=== PATIENT | male | born 1935 | race Caucasian/White ===

== ENCOUNTER 2021-03-09 13:49 | Inpatient (IN) | payer OTHER ==
[~2021-03-09] VITALS: Ht 182.9 cm; Wt 99.1 kg
[2021-03-09] MEDS ORDERED: XARELTO20 MG PO (15:31)
[2021-03-09] MEDS ORDERED: FUROSEMIDE 20 M20 MG PO (15:33)
[2021-03-09] MEDS ORDERED: LEVO-T100 MCG PO (15:35)
[2021-03-09] MEDS ORDERED: K-TAB ER20 MEQ PO (15:36)
[2021-03-09] MEDS ORDERED: LIPITOR40 MG PO (15:37)
[2021-03-09] MEDS ORDERED: PREDNISONE 10 M10 MG PO (15:38)
[2021-03-09] MEDS ORDERED: LOPRESSOR50 MG PO (15:38)
[2021-03-09] MEDS ORDERED: ARNUITY ELLIP100 MCG INH (15:40)
--- NOTE | 2021-03-09 18:23 | NUR ---
PATIENT ADMIT TO UNIT FROM [facility]. A/O X4. HARD HEARING. SR ON MONIOTR. ON 10L/NC, DENIES PAIN. WILL KEEP MONITOR.
[2021-03-09 19:25] VITALS: BP 97/50
[2021-03-09 23:53] VITALS: BP 96/56
[2021-03-10 02:42] VITALS: BP 122/64
[2021-03-10 05:09] LABS: INR 1.14; PROTIME 12.4 Seconds (10.5-12.1)
[2021-03-10 05:24] LABS: HEMATOCRIT 36.1 % (42.0-52.0); HEMOGLOBIN 12.3 gm/dL (14.0-18.0); MCH 35.2 pg (26.0-34.0); MCV 103.4 fL (80.0-100.0); RBC 3.5 mil/uL (4.50-6.00); RDW 14.1 % (10.5-14.5)
[2021-03-10 05:30] LABS: ALBUMIN 1.5 g/dL (3.4-5.0); CALCIUM 7.8 mg/dL (8.5-10.1); CREATININE 1.2 mg/dL (0.7-1.3); DIRECT BILIRUBIN 0.2 mg/dL (<0.1-0.2); PHOSPHORUS 4.2 mg/dL (2.5-4.9); POTASSIUM 3.8 mmol/L (3.5-5.1); TOTAL BILIRUBIN 0.5 mg/dL (0.2-1.0); TOTAL PROTEIN 5.5 g/dL (6.4-8.2)
--- NOTE | 2021-03-10 05:49 | NUR ---
PT MAKING SLOW PROGRESS TOWARDS GOALS. PLACED ON HIS HOME CPAP MACHINE WITH 7L O2 BLED IN. SLEPT OVER NIGHT. DENIED ANY COMPLAINTS THIS MORNING EXCEPT FOR DRY SCRATCHY THROAT. LUNG CTA UPPER LOBES, CRACKLES OVER BOTH LOWER LOBES.
[2021-03-10 07:17] VITALS: BP 104/58
--- NOTE | 2021-03-10 09:11 | NUR ---
WOUND CONSULT; THE PATIENT HAS SEVERAL AREAS TO THE LEFT BUTTOCKS W/ S/S CONSISTANT WITH FRICTION SHEARING. THE SACRUM REGION HAS AN AREA OF REDNESS THAT IS SLOW TO VINNIE AND CONSISTANT WITH A STAGE 1. THE PATIENT IS WEAK AND CANNOT TURN HIMSELF. NO S/S OF INFECTION. RECCOMENDATIONS; -LOW AIRLOSS PUMP WITH TURNING MORE FREQUANT THAN Q2H. -BARRIER CREAM BID -EMPLOY WEDGES AND PILLOWS. -MOISTURE/INCONTINENCE MANAGEMENT.
[2021-03-10 11:20] VITALS: BP 98/52
--- NOTE | 2021-03-10 11:45 | NUR ---
INITIAL ASSESSMENT: TIA reviewed chart and spoke with nursing and attending physician. Pt was transferred to [facility] from [facility] due to respiratory failure. Pt placed in Enhanced Isolation. Pt had a positive COVID test yesterday at [facility]. Pt is afebrile and currently on 9L of O2. Pt is on IV steroids/IV abx and Remdesivir. TIA placed call to pt's room. Pt unable to hear via phone. TIA spoke with pt's , Agnieszka, via phone. Introduced role of TIA. Pt's is a retired nurse. Pt is normally alert/orientated x 4 and lives at home with his in [place]. Pt with hx COPD/HTN. Pt has been at [facility] this month and was discharged home on 03/03 on home O2. Pt was on 4L of O2. Home O2 in place through [facility]. Pt has a home bipap machine through [facility]. Pt's states that pt has used a bipap machine for the past 18 years. Pt has not needed home O2 until just recent hospitalization. Pt is fully vaccinated and has had the booster shot for COVID. Pt's family is also fully vaccinated. Pt's family all tested negative yesterday. Pt is currently on service with [facility]. Pt's PCP is Dr. Wild Armenta in [place]. Pt sees Dr. Adryan Rose for pulmonary and Dr. Jones for cardiology in [place]. Pt's states pt gained 10 pounds from last Monday to Monday due to edema. SW discussed eventual discharge plan. No hx of post-acute placement. Pt's states that pt will need post-acute placement upon discharge for continued rehab services. Pt needs to get stronger prior to returning home. SW discussed options. Pt's requests referral to the swing bed unit at [place] due to location. SW also discussed pt's insurance. Pt's states pt has Medicare and C is secondary. TIA updated UR and Director of Case Mgmt, as [facility] is the only insurance listed. TIA left voice message for the dean of admissions at [facility]. TIA provided contact info for pt's to attending physician. Requested a call to pt's . Therapy evals have been ordered. TIA is following to assist as needed with discharge planning.
--- NOTE | 2021-03-10 13:21 | NUR ---
PATIENT IS ALERT AND ORIENTED X4. HE IS HARD OF HEARING. PATIENT IS CC/ TELE AND HAS BEEN AFIB IN THE 50'S THIS SHIFT. PATIENT IS ON 9L OF OXYGEN VIA HIGH FLOW NASAL CANULA AT THIS TIME. PATIENT HAS A SMALL BM THIS SHIFT. PATIENT IS CONTINENT OF URINE. PATIENT HAS A SCHULER CATHETER IN PLACE IT IS PATIENT. PATIENT HAS AN IV IN HIS RIGHT FOREARM AND IT IS PATENT. PATIENT WILL CONTINUE TO BE MONITORED.
[2021-03-10 15:33] VITALS: BP 106/56
[2021-03-10 19:46] VITALS: BP 108/65
--- NOTE | 2021-03-10 20:47 | HC ---
[facility] [place] [address] CONSULTATION Name: ÁNGEL ROYAL Room #: 350-P ADM IN M.R.#: [id number] Admission: 03/09/21 Attend Phys: Gamaliel Chang MD Discharge: Date of : 33 Report #: [id number] THIS REPORT FOR: cc: FAM - Family physician unknown FAM - Family physician unknown Jens Montgomery MD ~ DATE OF SERVICE: 03/09/2021 INFECTIOUS DISEASE CONSULTATION REASON FOR CONSULTATION: I was asked to evaluate concerning COVID-19 pneumonia. 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 Diagnosed with pneumonia and discharged. Subsequently, had further respiratory complaints and was rehospitalized and transferred to [facility] for further care. He has been previously vaccinated for COVID-19. Screened positive. Lives at home with his who is also, he reports, having issues with COVID-19. He is a retired dental mechanic. No HIV risk factors. No previous pneumonia reported other than his pulmonary toxicity. No tuberculosis exposure. No HIV risk factors. Has had intermittent headache. No anosmia. No nausea, vomiting or diarrhea. REVIEW OF SYSTEMS: A 14-point review of system was negative other than what has been described above. PAST MEDICAL HISTORY: COPD; pulmonary toxicity, amiodarone; atrial fibrillation, chronic anticoagulation, hypothyroidism, colon cancer, partial colon resection 20 years ago, right shoulder surgery. ALLERGIES: AMIODARONE. MEDICATIONS: As noted on his MAR, which were reviewed, noting Xarelto, Lasix, levothyroxine, atorvastatin, potassium, metoprolol, 10 mg of prednisone a day, fluticasone inhaler. FAMILY HISTORY: Heart disease, cancer. SOCIAL HISTORY: Nonsmoker, no significant alcohol intake. PHYSICAL EXAMINATION: GENERAL: He is afebrile and hemodynamically stable. On 8 liters of oxygen per nasal cannula. He was alert and cooperative. He was hard of hearing. SKIN: Without rash. No palpable adenopathy. HEENT: Eyes without scleral icterus. Mouth without mucositis. NECK: Supple. [facility] [address] [place] [address] CONSULTATION Name: ÁNGEL ROYAL Room #: 350-[facility] IN M.R.#: [id number] Admission: 03/09/21 Attend Phys: Gamaliel Chang MD Discharge: Date of : 34 Report #: [id number] LUNGS: Coarse breath sounds heard posteriorly. No consolidation. HEART: Regular, without murmur, gallop or rub. ABDOMEN: Soft and nontender. No hepatosplenomegaly or mass. GENITORECTAL: Examination not performed. EXTREMITIES: Without clubbing, cyanosis or edema. SPINE: Nontender. NEUROLOGIC: Cranial nerves with decreased hearing, right more than left. Strength in the upper and lower extremities was symmetric and within normal limits. PSYCHIATRIC: Mood without anxiety. IMPRESSION: An 85-year-old with: 1. COVID-19 pneumonia and respiratory failure. 2. Underlying chronic obstructive pulmonary disease and atrial fibrillation, on anticoagulation. 3. Amiodarone pulmonary toxicity, oxygen requiring. 4. Hypothyroidism, on replacement. RECOMMENDATION: Continue anti-inflammatory and antiviral therapy. Continue antibiotics pending culture results. Check serial laboratory studies and x-ray. Monitor on COVID isolation unit for cardiopulmonary care. <ELECTRONICALLY SIGNED> By: Jens Montgomery MD 03/10/21 2047 [id number] Jens Montgomery MD /nt
[2021-03-11 04:20] VITALS: BP 104/59
[2021-03-11 05:54] LABS: ABSOLUTE NEUTROPHILS 7.6 thou/uL (1.4-8.2); BASOPHILS 0.2 % (0.0-2.0); HEMOGLOBIN 12.2 gm/dL (14.0-18.0); LYMPHOCYTES 9.5 % (24.0-44.0); MCH 33.7 pg (26.0-34.0); MCHC 32.9 g/dL (28.0-37.0); MCV 102.5 fL (80.0-100.0); MONOCYTES 4.8 % (1.0-8.0); PLATELET COUNT 197 thou/uL (150-400); POLYS 85.5 % (36.0-66.0); RBC 3.61 mil/uL (4.50-6.00); RDW 14.1 % (10.5-14.5); WBC 8.9 thou/uL (4.0-11.0)
[2021-03-11 06:26] LABS: ALBUMIN 1.5 g/dL (3.4-5.0); CALCIUM 7.7 mg/dL (8.5-10.1); CREATININE 0.9 mg/dL (0.7-1.3); DIRECT BILIRUBIN 0.2 mg/dL (<0.1-0.2); PHOSPHORUS 3.3 mg/dL (2.6-4.7); POTASSIUM 3.5 mmol/L (3.5-5.1); TOTAL BILIRUBIN 0.5 mg/dL (0.2-1.0); TOTAL PROTEIN 5.5 g/dL (6.4-8.2)
--- NOTE | 2021-03-11 06:39 | NUR ---
PT MAKING SLOW PROGRESS TOWARDS GOALS. PT STATES THAT HE FEELS HE IS BREATHING BETTER THAN WHEN HE CAME HERE. O2 AT 7L PER NC AND WITH CPAP OVERNIGHT. CONTINUES TO HAVE FAINT CRACKLES IN BOTH BASES.
[2021-03-11 07:16] VITALS: BP 113/60
[2021-03-11 11:11] VITALS: BP 106/55
--- NOTE | 2021-03-11 11:27 | NUR ---
TIA reviewed chart and spoke with nursing and attending physician. Pt remains in Enhanced Isolation due to COVID. Pt is afebrile and on 8L of O2. Pt required 15L with physical therapy earlier today. Pt is on IV meds and Remdesivir. No discharge planned over the holiday weekend. TIA spoke with Sarah at [facility]. Provided clinical info. Per June, the should be able to accept pt next week. Sarah requests additional info/updates to be faxed on Monday for review. TIA spoke with pt's via phone to provide update and discuss discharge plan. Pt's is agreeable with plan and states that if [facility] is unable to accept, she would be agreeable with the swing bed unit at [facility]. Pt's spoke with attending physician this morning and is thankful for the info. Pt's code status has been changed to DNR. TIA is following to assist as needed with discharge planning.
--- NOTE | 2021-03-11 18:17 | NUR ---
Patient is alert and oriented x4. He is on enhanced precations. Patient is currently on 15L of oxygen via nasal canula. Patient is cc/ tele and has been sinus tonya this shift. Patient has a singh catheter in place that is patent. Patients last BM was this shift 2020. Patient has been q2 hours and cream has been applied to patietns sacral area as ordered. Patient has an IV in his right hand. IV is patient. Patient will continue to be monitored.
[2021-03-11 19:24] VITALS: BP 113/60
[2021-03-11 22:06] LABS: HIV ANTIBODY Non Reactive (Non Reactive)
[2021-03-12 02:52] LABS: ABSOLUTE NEUTROPHILS 9.2 thou/uL (1.4-8.2); BASOPHILS 0.1 % (0.0-2.0); HEMATOCRIT 36.3 % (42.0-52.0); HEMOGLOBIN 12.1 gm/dL (14.0-18.0); LYMPHOCYTES 7.8 % (24.0-44.0); MCH 34.2 pg (26.0-34.0); MCHC 33.4 g/dL (28.0-37.0); MCV 102.6 fL (80.0-100.0); MONOCYTES 3.8 % (1.0-8.0); PLATELET COUNT 181 thou/uL (150-400); POLYS 88.3 % (36.0-66.0); RBC 3.54 mil/uL (4.50-6.00); RDW 14.2 % (10.5-14.5); WBC 10.4 thou/uL (4.0-11.0)
--- NOTE | 2021-03-12 03:48 | NUR ---
ASSUMED PT CARE AT 1900. PT ALERT & ORIENTED X 4. CURRENTLY ON 15L O2 VIA CPAP. O2 SATS 94-99%. VSS AFEBRILE. NO C/O OF PAIN, NAUSEA/VOMITTING. PT IS SB ON TELE MONITOR. SCHULER TO DD. IV ABX ADMINISTERED. PT IS MAKING A SLOW PROGRESSION TOWARDS POC GOALS. CONTINUE WITH PLAN OF CARE.
[2021-03-12 04:09] VITALS: BP 109/61
[2021-03-12 04:24] LABS: ALBUMIN 1.4 g/dL (3.4-5.0); CALCIUM 7.7 mg/dL (8.5-10.1); DIRECT BILIRUBIN 0.2 mg/dL (<0.1-0.2); PHOSPHORUS 2.9 mg/dL (2.5-4.9); POTASSIUM 3.5 mmol/L (3.5-5.1); TOTAL BILIRUBIN 0.5 mg/dL (0.2-1.0); TOTAL PROTEIN 5.5 g/dL (6.4-8.2)
[2021-03-12 07:26] VITALS: BP 115/65
[2021-03-12 10:51] LABS: BE(vivo) 2.9 mmol/L (-2 to +3); HCO3 26.5 mmol/L (22.0-26.0); PCO2 37.2 mmHg (35.0-45.0); PO2 59.8 mmHg (80.0-100.0); sO2 92.5 % (92.0-98.0)
[2021-03-12 11:24] VITALS: BP 111/63
[2021-03-12 16:42] VITALS: BP 108/60
[2021-03-12 18:19] VITALS: BP 111/63
--- NOTE | 2021-03-12 18:40 | NUR ---
PATIENT IS ALERT AND ORIENTED X4 THIS SHIFT. HE IS HARD OF HEARING. HE IS CC/ TELE AND HAS BEEN RUNNING SINUS DARIEN THIS SHIFT. PATIENT WAS PLACED ON A HIGH FLOW NASAL CANULA 50/50. HE HAS TOLERATED THIS TREATMENT WELL. PATIENTS LAST BM WAS 12- . PATIENT HAS A SCHULER CATHETER THAT IS PATENT, PATIENT HAS AN IV IN HIS RIGHT HAND. PATIENT IS UP X1 ASSIST AND IS CURRENTLY IN HIS RECLINER. PATIENT HAS SKIN BREAK DOWN ON HIS SACRAL AREA AND HAS BEEN REPOSITIONED Q2 HOURS ORDERED. OINTMENT IS APPLIED TO AREA WITH SKIN BREAK DOWN. PATIENT CONTINUES TO BE ON ENHANCED PRECAUTIONS. PATIENT HAD A VIDEO VISIT WITH HIS FAMILY THIS EVENING AT IT HAS HAD A POSITIVE IMPACT ON PATIENTS MOOD. PATIENT WILL CONTINUE TO BE MONITORED.
[2021-03-12 20:25] VITALS: BP 106/44
[2021-03-13 05:40] LABS: ABSOLUTE NEUTROPHILS 8.3 thou/uL (1.4-8.2); BASOPHILS 0.1 % (0.0-2.0); HEMATOCRIT 37.2 % (42.0-52.0); HEMOGLOBIN 12.5 gm/dL (14.0-18.0); LYMPHOCYTES 8.5 % (24.0-44.0); MCH 34.3 pg (26.0-34.0); MCHC 33.6 g/dL (28.0-37.0); MCV 102.2 fL (80.0-100.0); MONOCYTES 3.4 % (1.0-8.0); PLATELET COUNT 163 thou/uL (150-400); RBC 3.64 mil/uL (4.50-6.00); RDW 14.5 % (10.5-14.5); WBC 9.4 thou/uL (4.0-11.0)
[2021-03-13 06:06] LABS: ALBUMIN 1.5 g/dL (3.4-5.0); CALCIUM 7.7 mg/dL (8.5-10.1); CREATININE 0.9 mg/dL (0.7-1.3); DIRECT BILIRUBIN 0.1 mg/dL (<0.1-0.2); PHOSPHORUS 2.9 mg/dL (2.6-4.7); POTASSIUM 3.4 mmol/L (3.5-5.1); TOTAL BILIRUBIN 0.5 mg/dL (0.2-1.0); TOTAL PROTEIN 5.5 g/dL (6.4-8.2)
[2021-03-13 06:15] VITALS: BP 113/56
--- NOTE | 2021-03-13 06:30 | NUR ---
ASSUMED PT CARE AT 1900. PT WAS UP ON CHAIR AT BEGINNING OF SHIFT. PT IS ALERT & ORIENTED X 4. CURRENTLY ON OPTIFLOW 50L 50% FIO2. D/C'D RIGHT FOREARM IV AND STARTED NEW IV RIGHT FA ON A NEW SITE. COLLECTED SPUTUM FOR CULTURE, AWAITING RESULTS. GANGA TO ANNA. VSS AFEBRILE. CONTINUE WITH PLAN OF CARE.
[2021-03-13 07:16] VITALS: BP 109/57
[2021-03-13 11:17] VITALS: BP 95/41
[2021-03-13 15:20] LABS: T-SPOT.TB Negative
[2021-03-13 15:34] VITALS: BP 119/60
[2021-03-13 16:33] VITALS: BP 119/60
--- NOTE | 2021-03-13 17:37 | NUR ---
PT A/0 X4. FREQUENT REPOSITIONING DUE TO L BUTTOCK WOUND. PT ABLE TO REPOSITION WITH ENCOURAGEMENT. DESATS WHEN SITTING UP TO EAT. DENIES NEEDS CURRENTLY. WILL CONTINUE TO MONITOR.
[2021-03-13 19:16] VITALS: BP 114/49
[2021-03-14 04:30] LABS: ABSOLUTE NEUTROPHILS 7.7 thou/uL (1.4-8.2); BASOPHILS 0.1 % (0.0-2.0); HEMATOCRIT 37.8 % (42.0-52.0); HEMOGLOBIN 12.7 gm/dL (14.0-18.0); MCH 34.2 pg (26.0-34.0); MCHC 33.6 g/dL (28.0-37.0); MONOCYTES 2.8 % (1.0-8.0); PLATELET COUNT 156 thou/uL (150-400); POLYS 88.1 % (36.0-66.0); RDW 13.9 % (10.5-14.5); WBC 8.8 thou/uL (4.0-11.0)
[2021-03-14 04:46] LABS: ALBUMIN 1.5 g/dL (3.4-5.0); CALCIUM 7.8 mg/dL (8.5-10.1); CREATININE 0.8 mg/dL (0.7-1.3); DIRECT BILIRUBIN 0.2 mg/dL (<0.1-0.2); POTASSIUM 3.4 mmol/L (3.5-5.1); TOTAL BILIRUBIN 0.5 mg/dL (0.2-1.0); TOTAL PROTEIN 5.4 g/dL (6.4-8.2)
--- NOTE | 2021-03-14 06:28 | NUR ---
PT SLOWLY PROGRESSING TOWARD GOALS. PT IS A&OX4, PLEASANT AND COOPERATIVE. BEGAN SHIFT ON OPTIFLOW 50L/60%. HAS SUCCESSFULLY TITRATED DOWN TO 50L/45%. DESATS QUICKLY WITH EXERTION OR PO INTAKE. SCHULER CATHETER IN PLACE TO DD WITH GOOD URINARY OUTPUT. VSS OTHERWISE. WILL CONTINUE TO OBSERVE FOR CHANGES.
[2021-03-14 07:16] VITALS: BP 118/65
[2021-03-14 11:13] VITALS: BP 100/46
[2021-03-14 15:11] VITALS: BP 115/56
--- NOTE | 2021-03-14 18:25 | NUR ---
PATIENT IS ALERT AND ORIENTED X4 THIS SHIFT. PATIENT IS ON ENCHANGED PRECAUTIONS. PATIENT ON OPTIFLOW WITH 50L/ 45% AND SATING AT 98%. PATIENT IS CC- TELE AND HAS BEEN RUNNING SINUS DARIEN THIS SHIFT. PATIENT HAS A SCHULER AND IT IS PATENT. PATIENT HAS GENERALIZED BRUISING ON BOTH ARMS. PATIENT HAS AN IV IN HIS RIGHT FOREARM THAT IT PATENT. PATIENT WILL CONTINUE TO BE MONITORED.
[2021-03-14 19:31] VITALS: BP 112/59
--- NOTE | 2021-03-15 00:40 | NUR ---
PT ALERT AND ORIENTED X4 VSS AFEBRILE. UNLABORED PRESENTLY ON CURRENT OPTIFLOW SETTINGS 45%FIO2 AND 50 LF. NO C/O PAIN. ID CAME TO SEE PT. BED DOWN. CALLLIGT IN REACH. ZGARD TO BOTTOM.
[2021-03-15 04:32] VITALS: BP 112/62
--- NOTE | 2021-03-15 06:37 | NUR ---
PT PROGRESSING TOWARDS D/V GOALS. VSS SATS WNL PRESENTLY ON OPTIFLOW 40%FIO2 AND 50LF. BNO C/O PAIN OR SOA.
[2021-03-15 06:59] LABS: ALBUMIN 1.5 g/dL (3.4-5.0); CALCIUM 7.7 mg/dL (8.5-10.1); CREATININE 0.9 mg/dL (0.7-1.3); DIRECT BILIRUBIN 0.1 mg/dL (<0.1-0.2); POTASSIUM 3.5 mmol/L (3.5-5.1); TOTAL BILIRUBIN 0.5 mg/dL (0.2-1.0); TOTAL PROTEIN 5.3 g/dL (6.4-8.2)
[2021-03-15 07:56] VITALS: BP 117/63
[2021-03-15 11:40] VITALS: BP 109/59
[2021-03-15 15:46] VITALS: BP 116/56
--- NOTE | 2021-03-15 15:51 | NUR ---
TIA reviewed chart and spoke with nursing and attending physician. Pt remains in Enhanced Isolation due to COVID. Pt is afebrile and requiring optiflow. Pt is on IV meds and Remdesivir. TIA received call from June at [facility]ing Bed [facility]. Update provided. Pt will need to be off optiflow in order to discharge to their swing bed unit. June to call tomorrow for an update. TIA is following to assist as needed with discharge planning.
--- NOTE | 2021-03-15 18:29 | NUR ---
PATIENT IS ALERT AND ORIENTED X4. PATIENT IS ON ENHANCED PRECAUTIONS. PATIENT IS ON OPTIFLOW AT 50L AND 40%. HIS OXYGEN SATURATION LEVELS ARE BETWEEN 90- 96% THIS SHIFT. PATIENT IS CC- TELE AND HAS BEEN SINUS DARIEN THIS SHIFT. PATIENT IS ON A HEART HEALTHY DIET, TAKES HIS PILLS WHOLE, AND HAD HIS LAST BM ON 03/15/21. PATIENT HAS A SCHULER CATHETER IN PLACE THAT IS PATENT. PATIENT IS TURNED Q2 HOURS ORDERED AND ZGUARD HAS BEEN APPLIED. PATIENT HAS AN IV IN HIS RIGHT FOREARM AND IT IS PATENT AND SALINE LOCKED. PATIENT WILL CONTINUE TO BE MONITORED.
[2021-03-15 19:35] VITALS: BP 113/58
--- NOTE | 2021-03-16 04:33 | NUR ---
Received pt. on Optiflow 40L/45% at beginning of shift and has maintained O2 sat in the mid to upper 90's. RT placed him on 8L/HF close to MN and maintaining O2 sat in the mid 90's.Cont. on enhanced precaution , afebrile. He stated he slept well during the night. Denies any concern at this time. making progress towards care plan goals.
[2021-03-16 05:10] LABS: ALBUMIN 1.7 g/dL (3.4-5.0); CALCIUM 7.6 mg/dL (8.5-10.1); CREATININE 0.9 mg/dL (0.7-1.3); DIRECT BILIRUBIN 0.2 mg/dL (<0.1-0.2); PHOSPHORUS 3.3 mg/dL (2.5-4.9); POTASSIUM 3.6 mmol/L (3.5-5.1); TOTAL BILIRUBIN 0.6 mg/dL (0.2-1.0); TOTAL PROTEIN 5.1 g/dL (6.4-8.2)
[2021-03-16 05:18] VITALS: BP 105/57
[2021-03-16 08:19] VITALS: BP 117/60
--- NOTE | 2021-03-16 11:22 | NUR ---
Assess d/t LOS. Pt admitted with covid+, hypoxia, HCAP. Requires optiflow O2. With friction/shearing to L buttock noted, Stg I to sacrum; pt not able to reposition self. Meds reviewed. Labs reviewed. Elevated BS likely r/t steroid. 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 Intakes 75-100% across admit on heart healthy diet. No c/o chewing/swallowing issues at this time. Low nutrition risk.
[2021-03-16 11:33] VITALS: BP 101/56
--- NOTE | 2021-03-16 12:08 | 2DMMODE ---
[address] [address] 2 D/M-MODE ECHOCARDIOGRAM Name: ÁNGEL ROYAL Room #: 350-P ADM IN M.R.#: [id number] Admission: 03/09/21 Attend Phys: Aidee Rosado MD Discharge: Date of : 34 Report #: [id number] THIS REPORT FOR: cc: FAM - Family physician unknown FAM - Family physician unknown Reece Perry MD [facility] ~ APPROVED REPORT Study performed: 03/16/2021 10:00:59 EXAM: Comprehensive 2D, Doppler, and color-flow Echocardiogram Patient Location: Bedside Room #: 350 Status: routine BSA: 2.21 HR: 53 bpm BP: 117/60 mmHg Rhythm: Bradycardia Other Information Technically limited study due to Covid 19. Indications Congestive Heart Failure COPD Atrial Fibrillation Hypertension/HDD 2D Dimensions IVC: 27.00 mm Aortic Valve AoV Peak Juanjose.: 1.27 m/s AO Peak Gr.: 6.44 mmHg Tricuspid Valve TR Peak Juanjose.: 2.83 m/s TR Peak Gr.: 32.08 mmHg PA Pressure: 42.00 mmHg Left Ventricle The left ventricle is normal size. There is normal LV segmental wall motion. There is normal left ventricular wall thickness. The left ventricular systolic function is normal. The left ventricular [address] [address] 2 D/M-MODE ECHOCARDIOGRAM Name: ÁNGEL ROYAL Room #: 350- ADM IN M.R.#: [id number] Admission: 03/09/21 Attend Phys: Maddie Najera Discharge: Date of : 34 Report #: [id number] ejection fraction is within the normal range. LVEF is 55-60%. Grade I - abnormal relaxation pattern. Right Ventricle The right ventricle is normal size. The right ventricular systolic function is normal. Atria The left atrium size is normal. The right atrium size is normal. Aortic Valve The aortic valve is normal in structure. Trace aortic regurgitation. There is no aortic valvular stenosis. Mitral Valve The mitral valve is normal in structure. Trace mitral regurgitation. No evidence of mitral valve stenosis. Tricuspid Valve The tricuspid valve is normal in structure. There is mild tricuspid regurgitation. Estimated PAP 42 mmHg. There is moderate pulmonary hypertension. Pulmonic Valve The pulmonary valve is normal in structure. There is no pulmonic valvular regurgitation. Great Vessels The aortic root is normal in size. IVC is dilated and collapses <50% with inspiration. Pericardium There is no pericardial effusion. <Conclusion> Normal left ventricle size/wall thickness Ejection fraction 60% Grade 1 diastolic dysfunction Normal right ventricle size/function Normal atrial size Normal aortic valve structure and function Trace of mitral valve insufficiency Mild tricuspid valve insufficiency Pulmonary systolic pressure estimated 42 mmHg [facility] [address] [place] [address] 2 D/M-MODE ECHOCARDIOGRAM Name: ÁNGEL ROYAL Room #: 350-P ADM IN M.R.#: [id number] Admission: 03/09/21 Attend Phys: Maddie Najera Discharge: Date of : 34 Report #: [id number] No pericardial effusion Normal aortic root size <ELECTRONICALLY SIGNED> By: Reece Perry MD, FACC 03/16/211206 06 06 Reece Perry MD, FACC /INF
--- NOTE | 2021-03-16 13:51 | NUR ---
TIA reviewed chart and spoke with nursing and attending physician. Pt remains in Enhanced Isolation due to COVID. Pt is afebrile and on 8L of O2. Pt is on IV meds and Remdesivir. TIA faxed updated clinical/therapy notes to Sarah at [facility] in [place]. Spoke with Sarah, who states that they can accommodate up to 15L of high flow O2 in their swing bed unit. Awaiting PT note from today. Per June, pt's info will be reviewed with their physician tomorrow. Pt would be in isolation for a total of 10 days post positive test date. TIA placed call to pt's , Indira ([phone]). Voice mailbox has not been set up. TIA is following to assist as needed with discharge planning.
[2021-03-16 15:26] VITALS: BP 104/60
--- NOTE | 2021-03-16 17:45 | NUR ---
PATIENT IS ALERT AND ORIENTED X4 THIS SHIFT. PATIENT IS ON ENHANCED PRECAUTIONS. PATIENT IS ON 6L OF OXYGEN VIA NASAL CANULA WHICH IS PATIENTS BASELINE. PATIENT IS SATURATION IS BETWEEN 96- 98%. PATIENT IS CC/ TELE AND HAS BEEN SINUS DARIEN THIS SHIFT. PATIENT IS HAS BEEN CONTINENT OF BM THIS SHIFT. PATIENT HAS A SCHULER CATHETER IN PLACE AND IT IS PATENT. PATIENT IV IN HIS RIGHT WRIST INFILTRATED THIS SHIFT. AND A NEW IV WAS PLACED IN PATIENTS LEFT WRIST. IV IS PATIENT AND INFUSING WITH ANTIBIOTICS CURRENTLY. PATIENT WILL CONTINUE TO BE MONITORED.
[2021-03-16 19:37] VITALS: BP 114/59
--- NOTE | 2021-03-17 03:02 | NUR ---
Up in the recliner chair till HS. Assisted back to bed using gait belt and walker. Maintaining O2 sat in the mid to upper 90's on 6L/HF. No respiratory distress. Cont. on enhanced precaution,afebrile. Had bm incontinenence while up in the chair. Z guard applied to buttocks. Making some progress towards care plan goals.
[2021-03-17 04:14] VITALS: BP 113/691
[2021-03-17 07:11] VITALS: BP 111/68
[2021-03-17 07:48] LABS: HEMATOCRIT 40.1 % (42.0-52.0); HEMOGLOBIN 13.4 gm/dL (14.0-18.0); MCH 34.2 pg (26.0-34.0); MCHC 33.5 g/dL (28.0-37.0); MCV 102.1 fL (80.0-100.0); RBC 3.92 mil/uL (4.50-6.00); RDW 14.2 % (10.5-14.5); WBC 7.8 thou/uL (4.0-11.0)
[2021-03-17 08:07] LABS: ALBUMIN 1.8 g/dL (3.4-5.0); CALCIUM 7.8 mg/dL (8.5-10.1); CREATININE 0.8 mg/dL (0.7-1.3); DIRECT BILIRUBIN 0.2 mg/dL (<0.1-0.2); MAGNESIUM 1.8 mg/dL (1.8-2.4); PHOSPHORUS 3.2 mg/dL (2.5-4.9); POTASSIUM 3.4 mmol/L (3.5-5.1); TOTAL BILIRUBIN 0.8 mg/dL (0.2-1.0); TOTAL PROTEIN 5.6 g/dL (6.4-8.2)
[2021-03-17 08:43] LABS: FOLIC ACID 5.2 ng/mL (8.6-58.9)
[2021-03-17 11:44] VITALS: BP 109/57
--- NOTE | 2021-03-17 14:32 | NUR ---
TIA reviewed chart and spoke with nursing and attending physician. Pt remains in Enhanced Isolation due to COVID. Pt is afebrile and on 6L of O2 at rest. PT is on IV steroids and IV lasix. TIA faxed updated clinical and therapy notes to [facility] for review. Left voice message for June. Pt may be ready to discharge in 1-2 days. TIA spoke with pt's via phone to provide update. Pt's is agreeable with plan. TIA is following to assist as needed with discharge planning.
[2021-03-17 15:01] VITALS: BP 113/53
--- NOTE | 2021-03-17 18:24 | NUR ---
ASSUMED PATIENT CARE AT 0700. A/O X4. TITRATED 02 TO 4L/NC. TOLERATED WELL. UP WITH ASSISTED. PROGRESSING TOWARDS POC GOALS.
[2021-03-17 19:29] VITALS: BP 114/63
--- NOTE | 2021-03-17 23:00 | NUR ---
PT RESTING IN BED WATCHING TV. O2 PER NC. LUNGS WITH CRACKLES. CONTINUOUS PULSE OX ON. FLUSHED SKIN TONE. PT VERBALIZED PLAN TO DC IN AM. BED ALARM ON. PT DECLINED HS SNACK.
[2021-03-18 03:25] VITALS: BP 106/56
[2021-03-18 05:00] LABS: HEMATOCRIT 40.5 % (42.0-52.0); HEMOGLOBIN 13.3 gm/dL (14.0-18.0); MCH 33.7 pg (26.0-34.0); MCHC 32.9 g/dL (28.0-37.0); MCV 102.3 fL (80.0-100.0); RBC 3.96 mil/uL (4.50-6.00); RDW 13.9 % (10.5-14.5); WBC 9.1 thou/uL (4.0-11.0)
[2021-03-18 05:25] LABS: ALBUMIN 1.9 g/dL (3.4-5.0); ANION GAP 2 mmol/L (7-16); BUN 36 mg/dL (7-18); CHLORIDE 101 mmol/L (98-107); CO2 36 mmol/L (21-32); CREATININE 0.8 mg/dL (0.7-1.3); GLUCOSE 171 mg/dL (74-106); POTASSIUM 3.4 mmol/L (3.5-5.1); SGOT 34 U/L (15-37); SGPT 98 U/L (30-65); SODIUM 139 mmol/L (136-145); TOTAL BILIRUBIN 0.7 mg/dL (0.2-1.0); TOTAL PROTEIN 5.4 g/dL (6.4-8.2)
[2021-03-18 06:57] VITALS: BP 101/55
--- NOTE | 2021-03-18 09:00 | NUR ---
TIA reviewed chart. Pt is afebrile and on 3L of O2. Pt is on IV steroids and IV lasix. TIA left another voice message for June, Swing Bed patient financial services coordinator at [facility]. Pt is progressing towards goals for discharge. Awaiting call back from June to determine when they are able to admit pt. TIA is following to assist as needed with discharge planning.
[2021-03-18 11:12] VITALS: BP 116/61
[2021-03-18] MEDS ORDERED: COMBIVENT RESPIM4 GM INH (15:44)
[2021-03-18] MEDS ORDERED: ZINC SULFATE50 MG PO (15:44)
[2021-03-18] MEDS ORDERED: PREDNISONE 10 M10 MG PO (15:48)
--- NOTE | 2021-03-18 16:22 | NUR ---
ASSUMED PATIENT CARE AT 0700. A/0,X3. TITRATED 02 TO 3-4L/NC. PROGRESSING TOWARDS POC GOALS.. WIIL DC TO SNF SOON.
== END 2021-03-18 16:59 | DRG 177 ==
LOC: 3W 13:49
PROVIDERS: Internal Medicine; Specialist; ADMIT Hospitalist; ATTEND Hospitalist
DX: U07.1 COVID-19 (principal); J12.82 Pneumonia due to coronavirus disease 2019; J96.21 Acute and chronic respiratory failure with hypoxia; E43 Unspecified severe protein-calorie malnutrition; E87.1 Hypo-osmolality and hyponatremia; I48.21 Permanent atrial fibrillation; I50.32 Chronic diastolic (congestive) heart failure; J44.0 Chronic obstructive pulmonary disease with (acute) lower respiratory infection; R74.01 Elevation of levels of liver transaminase levels; E03.9 Hypothyroidism, unspecified; E87.6 Hypokalemia; Z66 Do not resuscitate; G47.33 Obstructive sleep apnea (adult) (pediatric); T46.2X5A Adverse effect of other antidysrhythmic drugs, initial encounter; I11.0 Hypertensive heart disease with heart failure; Z68.29 Body mass index [BMI] 29.0-29.9, adult; Z82.49 Family history of ischemic heart disease and other diseases of the circulatory system; Y92.89 Other specified places as the place of occurrence of the external cause; Z85.038 Personal history of other malignant neoplasm of large intestine; Z83.49 Family history of other endocrine, nutritional and metabolic diseases; Z99.81 Dependence on supplemental oxygen; Z79.01 Long term (current) use of anticoagulants; Z90.49 Acquired absence of other specified parts of digestive tract
CPT/HCPCS: 10879